=== PATIENT | female | born 1960 | race Caucasian/White ===

== ENCOUNTER 2017-08-05 10:38 | Outpatient (CLI) | payer MEDICAID ==
[~2017-08-05 10:38] MED LIST: ASPI-1265 PO; ATOR40TA3 PO; BIO TEARS; CLON-527 PO; CYCL-1 PO; FOLI1TAB16 PO; METH2.5T PO; NORT25CA5 PO; OXYC-145 PO; SERT100T PO
[2017-08-05 10:40] VITALS: BP 153/73
== END 2017-08-05 11:30 | disposition home or self-care (01) ==
LOC: ORTHO 10:38
PROVIDERS: ATTEND Nurse Practitioner Family
DX: S82.892A Other fracture of left lower leg, initial encounter for closed fracture (principal); E78.00 Pure hypercholesterolemia, unspecified; F32.9 Major depressive disorder, single episode, unspecified; F41.9 Anxiety disorder, unspecified; Z88.5 Allergy status to narcotic agent; Z88.8 Allergy status to other drugs, medicaments and biological substances; X58.XXXA Exposure to other specified factors, initial encounter; Y93.89 Activity, other specified; Y92.89 Other specified places as the place of occurrence of the external cause; Y99.8 Other external cause status
CPT/HCPCS: 99213

== ENCOUNTER 2017-08-26 15:06 | Outpatient (CLI) | payer MEDICAID ==
[2017-08-26 15:09] VITALS: BP 130/76
== END 2017-08-26 15:58 | disposition home or self-care (01) ==
LOC: ORTHO 15:06
PROVIDERS: ATTEND Nurse Practitioner Family
DX: S82.62XD Displaced fracture of lateral malleolus of left fibula, subsequent encounter for closed fracture with routine healing (principal); E78.00 Pure hypercholesterolemia, unspecified; F32.9 Major depressive disorder, single episode, unspecified; F41.9 Anxiety disorder, unspecified; Z88.5 Allergy status to narcotic agent; Z88.8 Allergy status to other drugs, medicaments and biological substances; X58.XXXD Exposure to other specified factors, subsequent encounter
CPT/HCPCS: 29540; 73610; 99213

== ENCOUNTER 2017-10-21 13:01 | Outpatient (CLI) | payer MEDICAID ==
[2017-10-21 13:02] VITALS: BP 129/76
== END 2017-10-21 13:31 | disposition home or self-care (01) ==
LOC: ORTHO 13:01
PROVIDERS: ATTEND Nurse Practitioner Family
DX: S82.892G Other fracture of left lower leg, subsequent encounter for closed fracture with delayed healing (principal); F41.9 Anxiety disorder, unspecified; F32.9 Major depressive disorder, single episode, unspecified; F17.210 Nicotine dependence, cigarettes, uncomplicated; E78.00 Pure hypercholesterolemia, unspecified; Z88.5 Allergy status to narcotic agent; X58.XXXD Exposure to other specified factors, subsequent encounter
CPT/HCPCS: 73610; 99213

== ENCOUNTER 2017-12-02 10:39 | Outpatient (CLI) | payer MEDICAID ==
[2017-12-02 10:45] VITALS: BP 113/63
== END 2017-12-02 11:14 | disposition home or self-care (01) ==
LOC: ORTHO 10:39
PROVIDERS: ATTEND Nurse Practitioner Family
DX: S82.65XD Nondisplaced fracture of lateral malleolus of left fibula, subsequent encounter for closed fracture with routine healing (principal); F17.200 Nicotine dependence, unspecified, uncomplicated; E78.00 Pure hypercholesterolemia, unspecified; F41.9 Anxiety disorder, unspecified; F32.9 Major depressive disorder, single episode, unspecified; Z88.5 Allergy status to narcotic agent; Z88.0 Allergy status to penicillin; X58.XXXD Exposure to other specified factors, subsequent encounter
CPT/HCPCS: 73610; 99213

== ENCOUNTER 2018-02-15 03:19 | Emergency (ER) | payer MEDICAID ==
[~2018-02-15] VITALS: Ht 152.4 cm; Wt 47.2 kg
[2018-02-15] MEDS ORDERED: dexamethasone sod phosphate 10mg/ml inj IM STA (03:41)
[2018-02-15] MEDS ORDERED: ondansetron 4mg rapidly disintigrating tab PO ONE (03:45)
[2018-02-15] MEDS ORDERED: morphine 4 MG/ML inj SYRINge IM ONE (03:45)
[2018-02-15 04:45] LABS: BASOPHILS # (AUTO) 0.1 X10'3 (0-0.2); EOSINOPHILS # (AUTO) 0.2 X10'3 (0-0.9); EOSINOPHILS % (AUTO) 2.9 % (0-6); HEMATOCRIT 35.4 % (35.0-45.0); HEMOGLOBIN 12.1 g/dl (12.0-16.0); LYMPHOCYTES # (AUTO) 1.4 X10'3 (1.1-4.8); LYMPHOCYTES % (AUTO) 18.6 % (21-51); MEAN CORPUSCULAR HEMOGLOBIN 33.5 PG (27.0-31.0); MEAN CORPUSCULAR VOLUME 98.3 FL (78-98); MEAN PLATELET VOLUME 9.3 FL (7.4-10.4); MONOCYTES # (AUTO) 0.5 X10'3 (0-0.9); MONOCYTES % (AUTO) 6.7 % (2-12); NEUTROPHILS # (AUTO) 5.2 X10'3 (1.8-7.7); NEUTROPHILS % (AUTO) 69.8 % (42-75); PLATELET COUNT 248 X10'3 (140-440); RED CELL DISTRIBUTION WIDTH 14.1 % (11.5-14.5); WHITE BLOOD COUNT 7.5 X10'3 (4.5-11.0)
[2018-02-15 05:00] LABS: ALANINE AMINOTRANSFERASE 15 U/L (12-78); ALBUMIN 3.7 G/DL (3.4-5.0); ALBUMIN/GLOBULIN RATIO 1.2 (1.1-1.5); ALKALINE PHOSPHATASE 59 IU/L (46-116); ANION GAP 10 (8-16); ASPARTATE AMINO TRANSFERASE 14 U/L (10-37); BILIRUBIN,TOTAL 0.3 MG/DL (0.1-1.0); BLOOD UREA NITROGEN 10 MG/DL (7-18); BUN/CREATININE RATIO 10.8 (6.6-38.0); CALCIUM 8.5 MG/DL (8.5-10.1); CHLORIDE 101 MMOL/L (99-107); CREATININE 0.93 MG/DL (0.40-0.90); GLUCOSE 118 MG/DL (70-104); POTASSIUM 3.5 MMOL/L (3.5-5.1); SODIUM 140 MMOL/L (135-145); TOTAL CARBON DIOXIDE 28.8 MMOL/L (24-32); TOTAL PROTEIN 6.8 G/DL (6.4-8.2); eGFR 61 ML/MIN
[2018-02-15] MEDS ORDERED: morphine 4 MG/ML inj SYRINge IV ONE (05:50)
[2018-02-15] MEDS ORDERED: ondansetron/PF 4mg/2ml inj IV ONE (05:50)
[2018-02-15] MEDS ORDERED: METHOTREXATE 2.5 MG TABLET (05:59)
[2018-02-15] MEDS ORDERED: SERTRALINE HCL 100 MG TABLET (05:59)
[2018-02-15] MEDS ORDERED: ABILIFY 10 MG (05:59)
[2018-02-15] MEDS ORDERED: CLONAZEPAM 1 MG TABLET (05:59)
[2018-02-15] MEDS ORDERED: ATORVASTATIN 40 MG TABLET (05:59)
[2018-02-15 07:41] VITALS: BP 105/60
== END 2018-02-15 07:44 | disposition short-term general hospital (02) ==
LOC: ER 03:20
DX: G54.8 Other nerve root and plexus disorders (principal); R53.1 Weakness; M54.41 Lumbago with sciatica, right side; E78.00 Pure hypercholesterolemia, unspecified; G89.29 Other chronic pain; F17.200 Nicotine dependence, unspecified, uncomplicated; Z90.710 Acquired absence of both cervix and uterus; Z88.5 Allergy status to narcotic agent; Z88.8 Allergy status to other drugs, medicaments and biological substances; Z79.82 Long term (current) use of aspirin; Z79.899 Other long term (current) drug therapy
CPT/HCPCS: 36415; 72131; 80053; 85025; 96372; 96374; 96375; 99285; J1100; J2270; J2405

== ENCOUNTER 2024-03-25 11:10 | Outpatient (CLI) | payer MEDICARE, MEDICAID ==
[~2024-03-25 11:10] MED LIST changes: +ABILIFY 10 MG; +ATOR-411 PO; -ATOR40TA3 PO; +ATORVASTATIN 40 MG TABLET; +CLONAZEPAM 1 MG TABLET; -FOLI1TAB16 PO; +FOLI1TAB27 PO; +METHOTREXATE 2.5 MG TABLET; +SERTRALINE HCL 100 MG TABLET
== END 2024-03-25 23:59 | disposition home or self-care (01) ==
LOC: MRI02 11:10
PROVIDERS: ATTEND Family Medicine Sports Medicine
DX: M19.011 Primary osteoarthritis, right shoulder (principal); M25.511 Pain in right shoulder; M75.101 Unspecified rotator cuff tear or rupture of right shoulder, not specified as traumatic; M75.51 Bursitis of right shoulder; M89.311 Hypertrophy of bone, right shoulder; M67.813 Other specified disorders of tendon, right shoulder
CPT/HCPCS: 73221